=== PATIENT | female | born 1945 | race Caucasian/White ===

== ENCOUNTER → 2022-02-25 15:10 | Outpatient (BNVA) | payer MEDICARE, SELFPAY | PROVIDERS: Referring Provider Internal Medicine; Visit Provider Specialist | DX: M25.552 Pain in left hip (principal) | CPT/HCPCS: 73502 ==

== ENCOUNTER 2022-02-28 14:17 | Outpatient (CLI) | payer MEDICARE, SELFPAY ==
--- NOTE | 2022-02-28 14:25 | XR_ITS ---
WS: [id number] SCREENING DEXA SCAN [employer] CLINICAL INFORMATION: CHRONIC OSTEOARTHRITIS/OSTEOPENIA COMPARISON: None. FINDINGS: The L1-L4 bone mineral density measures 1.506 g/cm2. This corresponds to a T score score of 2.7 and Z score of 4.3. Left femoral neck bone mineral density measures 0.806 g/cm2. This corresponds to a T score of -1.6 an d Z score of 0.1. Right femoral neck bone mineral density measures 0.813 g/cm2. This corresponds to a T score -1.5of an d Z score of 0.2. Mean femoral neck bone mineral density measures 0.809 g/cm2. This corresponds to a T score of -1.6 an d Z score of 0.1. XR/XR DEXA axial skeleton* [id number] IMPRESSION: Osteopenia femoral necks. Normal bone mineralization calculated in the lumbar spine although likely spuri ously elevated due to endplate sclerosis. Patient's FRAX calculated 10 year probability for major osteoporotic fracture i s 31.1 % and osteoporotic hip fracture is 16.9%.
== END 2022-02-28 14:18 | disposition home or self-care (01) ==
LOC: RAD 14:20
PROVIDERS: Visit Provider Nurse Practitioner
DX: M19.90 Unspecified osteoarthritis, unspecified site (principal); M85.80 Other specified disorders of bone density and structure, unspecified site; M16.10 Unilateral primary osteoarthritis, unspecified hip; I10 Essential (primary) hypertension; F03.90 Unspecified dementia, unspecified severity, without behavioral disturbance, psychotic disturbance, mood disturbance, and anxiety
CPT/HCPCS: 77080

== ENCOUNTER → 2024-09-06 15:54 | Outpatient (BNVA) | payer MEDICARE, SELFPAY | PROVIDERS: PCP Family Medicine; Visit Provider Family Medicine | DX: I48.91 Unspecified atrial fibrillation (principal); N18.9 Chronic kidney disease, unspecified; K92.1 Melena; R10.9 Unspecified abdominal pain; R63.4 Abnormal weight loss; G57.93 Unspecified mononeuropathy of bilateral lower limbs; Z98.890 Other specified postprocedural states; I48.0 Paroxysmal atrial fibrillation | CPT/HCPCS: 80053; 83550; 84439; 84443; 85025 ==

== ENCOUNTER 2024-10-22 14:24 | Outpatient (CLI) | payer MEDICARE, SELFPAY ==
[2024-10-22 15:37] LABS: Basophils # 0.1 10^3/uL (0.0-0.1); Basophils % 0.9 %; Eosinophils # 0.5 10^3/uL (0.0-0.8); Hematocrit 39.2 % (36-47); Lymphocytes % 38.6 %; Mean Corpuscular HGB Conc 30.9 g/dL (30-55); Mean Corpuscular Hemoglobin 29.1 pg (27-33); Mean Corpuscular Volume 94.2 fl (85-98); Monocytes # 0.7 10^3/uL (0.2-0.9); Monocytes % 9.3 %; Neutrophils # 3.54 10^3/uL (1.8-7.7); Neutrophils % 45.1 %; Nucleated Red Blood Cells % 0 %; Platelet Count 125 10^3/cmm (157-399); Red Blood Count 4.16 10^6/uL (3.85-5.65); Red Cell Distribution Width 20.5 % (12.1-15.1); White Blood Count 7.85 10^3/uL (3.29-11.43)
[2024-10-22 15:56] LABS: Anion Gap 15.2 (5-19); Blood Urea Nitrogen 12 mg/dL (8-23); Calcium 8.9 mg/dL (8.5-10.5); Carbon Dioxide 24 mmol/L (22-29); Chloride 107 mmol/L (98-107); Glucose 111 mg/dL (65-115); Osmolality Calculated 294 mOsm/kg (285-295); Potassium 4.2 mmol/L (3.5-5.1); Sodium 142 mmol/L (136-145)
[2024-10-22 16:10] LABS: Iron 106 ug/dL (37-145)
== END 2024-10-22 14:25 | disposition home or self-care (01) ==
LOC: LAB 14:27
PROVIDERS: PCP Family Medicine; Visit Provider Family Medicine
DX: I10 Essential (primary) hypertension (principal); I48.0 Paroxysmal atrial fibrillation; N18.9 Chronic kidney disease, unspecified; R82.90 Unspecified abnormal findings in urine; E87.6 Hypokalemia
CPT/HCPCS: 36415; 80048; 83540; 85025; 87077; 87086; 87186

== ENCOUNTER → 2025-02-17 15:40 | Outpatient (BNVA) | payer MEDICARE, SELFPAY | PROVIDERS: PCP Family Medicine; Visit Provider Family Medicine | DX: I10 Essential (primary) hypertension (principal); I48.0 Paroxysmal atrial fibrillation; N18.9 Chronic kidney disease, unspecified; E87.6 Hypokalemia | CPT/HCPCS: 80048; 83540; 85025 ==

== ENCOUNTER 2025-05-20 15:22 | Outpatient (CLI) | payer MEDICARE, SELFPAY ==
--- NOTE | 2025-05-20 15:35 | XRR_ITS ---
PROCEDURE INFORMATION: Exam: XR Chest Exam date and time: 05/20/2025 3:43 PM Age: 80 years old Clinical indication: Cough; Additional info: Chronic cough TECHNIQUE: Imaging protocol: Radiologic exam of the chest. Views: 2 views. COMPARISON: No relevant prior studies available. FINDINGS: Lungs: Mild perihilar peribronchial thickening. No focal infiltrate or consolidation. Pleural spaces: No pleural effusion or pneumothorax. Heart/Mediastinum: Unremarkable. No cardiomegaly. Vasculature: Mild arteriosclerosis of the thoracic aorta. Bones/joints: Thoracolumbar scoliosis. Spondylotic change within the visualized thoracolumbar spine. XR/XR chest 2V* [id number] IMPRESSION: Mild perihilar peribronchial thickening could reflect acute or chronic change. Correlate clinically for acute bronchitis otherwise.
== END 2025-05-20 15:23 | disposition home or self-care (01) ==
PROVIDERS: PCP Family Medicine; Visit Provider Family Medicine
DX: R05.3 Chronic cough (principal); R91.8 Other nonspecific abnormal finding of lung field; I70.0 Atherosclerosis of aorta; M41.85 Other forms of scoliosis, thoracolumbar region; M47.895 Other spondylosis, thoracolumbar region
CPT/HCPCS: 71046

== ENCOUNTER → 2025-06-21 15:42 | Outpatient (BNVA) | payer MEDICARE, SELFPAY | PROVIDERS: PCP Family Medicine; Visit Provider Family Medicine | DX: N18.31 Chronic kidney disease, stage 3a (principal); I10 Essential (primary) hypertension; I48.0 Paroxysmal atrial fibrillation; I73.9 Peripheral vascular disease, unspecified; F03.A0 Unspecified dementia, mild, without behavioral disturbance, psychotic disturbance, mood disturbance, and anxiety | CPT/HCPCS: 80053; 85025 ==

== ENCOUNTER → 2025-10-11 14:27 | Outpatient (BNVA) | payer MEDICARE, SELFPAY | PROVIDERS: PCP Family Medicine; Visit Provider Family Medicine | DX: I10 Essential (primary) hypertension (principal); I48.0 Paroxysmal atrial fibrillation; I73.9 Peripheral vascular disease, unspecified; E87.6 Hypokalemia; N18.31 Chronic kidney disease, stage 3a; Z98.890 Other specified postprocedural states | CPT/HCPCS: 80048; 82607; 83540; 85025 ==